=== PATIENT | female | born 1995 | race Caucasian/White ===

== ENCOUNTER 2019-03-31 14:45 | Emergency (ER) | payer SELFPAY ==
[2019-03-31 15:47] LABS: Absolute Lymphocytes (CBC) 0.9 K/uL (0.7-4.9); Absolute Monocytes 0.6 K/uL (0.1-1.3); Basophils % 0.2 % (0-1.3); Eosinophils % 0.9 % (0-4.4); Hematocrit 38.4 % (36.0-45.0); MPV 9.3 fL (7.6-11.3); Monocytes % 4.9 % (3.3-12.3); RBC Red Blood Cell Count 4.33 M/uL (3.86-4.86)
[2019-03-31] MEDS ORDERED: NA CHLORIDE 0.9% 1,000 ML ONE (15:58)
[2019-03-31 16:02] LABS: BUN Blood Urea Nitrogen 8 mg/dL (7-18); Bicarbonate 23 mmol/L (21-32); Glucose Level 83 mg/dL (74-106); Potassium 3.7 mmol/L (3.5-5.1); Sodium Level 138 mmol/L (136-145)
--- NOTE | 2019-03-31 17:23 | RAD REPORT ---
EXAM DESCRIPTION: US - Matter Elizabethal Tm 1 - 03/31/2019 5:17 pm CLINICAL HISTORY: ABD PAIN Early . COMPARISON: OBSTETRICAL COMPLETE dated 10/05/2012 FINDINGS: A single gestational sac is seen within the uterus. The shape of the sac is within normal limits for gestational age. Within the sac is a single pole with crown-rump length of 2.7 cm, c orrelating to estimated gestational age of 9 weeks 3 days. Estimated date of delivery is 10/31/2019. Heart rate is 172 BPM.. The placenta is not yet developed / visualized due to early gestational age. The maternal adnexa and ovaries are within normal limits. Normal Doppler blood flow was demonstrated to both ovaries. IMPRESSION: Single live early intrauterine gestation with estimated gestational age of 9 weeks 3 day s, ALEX 10/31/2019. No unusual or unexpected finding.
[2019-03-31 17:58] LABS: Blood Morphology Comment NOT SEEN (NOT SEEN); Platelet Estimate ADEQ; Urine White Blood Cell Casts OK
--- NOTE | 2019-03-31 18:16 | EDPHYS ---
Physician Documentation [facility] Name: Jahaira Martines Age: 23 yrs Sex: Female : 1995 Arrival Date: 03/31/2019 Time: 14:49 Bed 8 Private MD: ED Physician Laith Mars HPI: 03/31 18:44 This 23 yrs old Female presents to ER via Ambulatory with complaints of kdr Dizziness, Abdominal Pain - 8 wks preg. 18:44 The patient has had intermittent dizziness and right arm numbness for a month or more. kdr She had a syncopal episode earlier today but then went to work. After going to work, she began to have low abdominal pain. She then sought treatment here. She has had no care to date. She is currently not in acute distress and does not appear ill or debilitated in any way. Onset: The symptoms/episode began/occurred today. Severity of symptoms: At their worst the symptoms were moderate in the emergency department the symptoms have resolved. The patient has experienced similar episodes in the past, multiple times. The patient has not recently seen a physician. Historical: - Allergies: 15:12 No Known Drug Allergies; sv - PMHx: 15:12 Migraines; sv - PSHx: 15:12 ; sv - Immunization history:: Adult Immunizations up to date. - Social history:: Smoking status: Patient/guardian denies using tobacco. - Ebola Screening: : No symptoms or risks identified at this time. Vital Signs: 15:12 BP 147 / 85; Pulse 93; Resp 16; Temp 98; Pulse Ox 99% ; Weight 104.33 kg; Height 5 ft. sv 3 in. (160.02 cm); Pain 4/10; 17:55 BP 121 / 70; Pulse 72; Resp 16; Pulse Ox 98% on R/A; la1 15:12 Body Mass Index 40.74 (104.33 kg, 160.02 cm) sv MDM: 18:15 Patient medically screened. kdr 03/31 15:20 Order name: Abo/rh Typing; Complete Time: 17:10 kdr 03/31 15:20 Order name: Basic Metabolic Panel; Complete Time: 17:10 kdr 03/31 15:20 Order name: CBC with Diff kdr 03/31 16:41 Order name: Urine Dipstick--Ancillary (enter results) 1 03/31 16:41 Order name: Urine --Ancillary (enter results) em1 03/31 15:20 Order name: IV Saline Lock; Complete Time: 15:39 kdr 03/31 15:20 Order name: Labs collected and sent; Complete Time: 15:39 kdr 03/31 15:20 Order name: NPO; Complete Time: 15:39 kdr 03/31 15:20 Order name: EKG; Complete Time: 15:22 sv 03/31 17:18 Order name: Matter Eval Tm 1; Complete Time: 17:32 EDSC 03/31 17:59 Order name: CBC Smear Scan EDSC 03/31 15:20 Order name: Urine Dipstick-Ancillary (obtain specimen); Complete Time: 16:41 kdr 03/31 15:20 Order name: EKG - Nurse/Tech; Complete Time: 15:39 sv Administered Medications: 15:44 Drug: NS 0.9% 1000 ml Route: IV; Rate: 1 bolus; Site: right antecubital; la1 18:51 Follow up: IV Status: Completed infusion la1 Disposition: 03/31/19 18:15 Discharged to Home. Impression: Abdominal and pelvic pain, Abdominal Pain in . - Condition is Stable. - Discharge Instructions: Abdominal Pain, Adult, Kjie-ga-[id number], Abdominal Pain During , [id number]-[id number]. - Prescriptions for promethazine 25 mg Oral Tablet - take 1 tablet by ORAL route every 6 hours As needed; 20 tablet. - Medication Reconciliation Form, Thank You Letter, Work release form form. - Follow up: Private Physician; When: 2 - 3 days; Reason: If symptoms return, Further diagnostic work-up, Recheck today's complaints, Continuance of care, Re-evaluation by your physician. - Problem is new. - Symptoms have improved. Signatures: Dispatcher [employer] [facility] Rosie Chavis RN HORACIO Laith Mars MD MD kdr Attema, Lee, RN RN la1 Corrections: (The following items were deleted from the chart) 17:18 15:44 OB Complete+US.RAD.BRZ ordered. [facility] 18:52 18:15 03/31/2019 18:15 Discharged to Home. Impression: Abdominal and pelvic pain; la1 Abdominal Pain in . Condition is Stable. Forms are Medication Reconciliation Form, Thank You Letter, Antibiotic Education, Prescription Opioid Use. Follow up: Private Physician; When: 2 - 3 days; Reason: If symptoms return, Further diagnostic work-up, Recheck today's complaints, Continuance of care, Re-evaluation by your physician. Problem is new. Symptoms have improved. kdr
--- NOTE | 2019-03-31 18:16 | ER ---
Nurse's Notes [facility] Name: Jahaira Martines Age: 23 yrs Sex: Female : 1995 Arrival Date: 03/31/2019 Time: 14:49 Bed 8 Private MD: Diagnosis: Abdominal and pelvic pain;Abdominal Pain in Presentation: 03/31 15:09 Presenting complaint: Patient states: dizziness since this morning and passed out sv around 0900, went to work and had a banana today d/t nausea. lower abd pain since 1300 today. Pt also reports for about the past month has had dizzy spells and intermittently she will have her right arm go numb. Reports being about 8 weeks . Transition of care: patient was not received from another setting of care. Onset of symptoms was March 31, 2019. Care prior to arrival: None. 15:09 Method Of Arrival: Ambulatory sv 15:09 Acuity: BORA 2 sv 15:19 Initial Sepsis Screen: Does the patient meet any 2 criteria? No. Patient's initial sv sepsis screen is negative. Does the patient have a suspected source of infection? No. Patient's initial sepsis screen is negative. Triage Assessment: 15:09 General: Appears uncomfortable, Behavior is calm, cooperative, appropriate for age. sv Pain: Complains of pain in right lower quadrant and left lower quadrant Pain currently is 4 out of 10 on a pain scale. Neuro: Level of Consciousness is awake, alert, obeys commands, Oriented to person, place, time, situation, Moves all extremities. Full function Gait is steady, Speech is normal, Reports dizziness, a syncopal episode. Respiratory: Respiratory effort is even, unlabored, Respiratory pattern is regular, symmetrical. GI: Reports lower abdominal pain, nausea. Historical: - Allergies: 15:12 No Known Drug Allergies; sv - PMHx: 15:12 Migraines; sv - PSHx: 15:12 ; sv - Immunization history:: Adult Immunizations up to date. - Social history:: Smoking status: Patient/guardian denies using tobacco. - Ebola Screening: : No symptoms or risks identified at this time. Screenin:40 Abuse screen: Denies threats or abuse. Nutritional screening: No deficits noted. la1 Tuberculosis screening: No symptoms or risk factors identified. Fall Risk None identified. Assessment: 15:39 General: Appears in no apparent distress. Behavior is calm, cooperative. Pain: la1 Complains of pain in abdomen and left lower quadrant and right lower quadrant. Neuro: Level of Consciousness is awake, alert, obeys commands, Oriented to person, place, time, situation. Cardiovascular: Capillary refill < 3 seconds Patient's skin is warm and dry. Respiratory: Airway is patent Respiratory effort is even, unlabored, Respiratory pattern is regular, symmetrical, Breath sounds are clear bilaterally. GI: Bowel sounds present X 4 quads. Abd is soft and non tender X 4 quads. Reports nausea, vomiting. : No signs and/or symptoms were reported regarding the genitourinary system. 16:37 Reassessment: Patient appears in no apparent distress at this time. No changes from la1 previously documented assessment. Patient and/or family updated on plan of care and expected duration. Pain level reassessed. Patient is alert, oriented x 3, equal unlabored respirations, skin warm/dry/pink. 17:55 Reassessment: Patient appears in no apparent distress at this time. No changes from la1 previously documented assessment. Patient and/or family updated on plan of care and expected duration. Pain level reassessed. Patient is alert, oriented x 3, equal unlabored respirations, skin warm/dry/pink. 18:51 Neuro: No deficits noted. Level of Consciousness is awake, alert, obeys commands, la1 Oriented to person, place, time, situation, Banquet Captain are equal bilaterally Speech is normal, Pupils are PERRLA. Vital Signs: 15:12 BP 147 / 85; Pulse 93; Resp 16; Temp 98; Pulse Ox 99% ; Weight 104.33 kg; Height 5 ft. sv 3 in. (160.02 cm); Pain 4/10; 17:55 BP 121 / 70; Pulse 72; Resp 16; Pulse Ox 98% on R/A; la1 15:12 Body Mass Index 40.74 (104.33 kg, 160.02 cm) sv ED Course: 14:49 Patient arrived in ED. as 15:11 Triage completed. sv 15:12 Arm band placed on. sv 15:19 Laith Mars MD is Attending Physician. kdr 15:39 Asa Wraren RN is Primary Nurse. la1 15:40 Placed in gown. Bed in low position. Call light in reach. la1 15:40 No provider procedures requiring assistance completed. Inserted saline lock: 20 gauge la1 in right antecubital area, using aseptic technique. Blood collected. 16:08 Radiology exam delayed due to test not completed at this time. sg3 16:25 Lab(s) recollected, by me, sent to lab. Second set of blood cultures drawn. Inserted em1 saline lock: 22 gauge in right hand, using aseptic technique. Blood collected. 17:18 Matter Eval Tm 1 In Process Unspecified. EDMS 18:51 IV discontinued, intact, bleeding controlled, No redness/swelling at site. Pressure la1 dressing applied. Administered Medications: 15:44 Drug: NS 0.9% 1000 ml Route: IV; Rate: 1 bolus; Site: right antecubital; la1 18:51 Follow up: IV Status: Completed infusion la1 Outcome: 18:15 Discharge ordered by . kdr 18:51 Discharged to home ambulatory. la1 18:51 Condition: stable 18:51 Discharge instructions given to patient, Instructed on discharge instructions, follow up and referral plans. medication usage, Demonstrated understanding of instructions, follow-up care, medications, Prescriptions given X 1. 18:52 Patient left the ED. la1 Signatures: Dispatcher [employer] EDMS Rosie Chavis RN RN Laith Lou MD MD kdr Martinez, Kelsey Godwin, John em1 Asa Warren RN RN la1 Darleen Hammer sg3 Corrections: (The following items were deleted from the chart) 15:20 15:09 Presenting complaint: Patient states: dizziness since this morning and passed out sv around 0900, lower abd pain since 1300 today. Pt also reports for about the past month has had dizzy spells and intermittently she will have her right arm go numb. sv
[2019-03-31 19:34] VITALS: TEMP 98
[2019-03-31 19:35] VITALS: BP 121/70; O2SAT 98
[2019-03-31 20:10] LABS: Urine Blood NEGATIVE (NEG); Urine Glucose NEGATIVE (NEG); Urine Protein NEGATIVE (NEG); Urine pH 6.5 (5.0-7.0)
--- NOTE | 2019-04-01 09:48 | EKG ---
Test Date: 2019-03-31 Test Time: 15:28:52 Flat Screen Worker: VIBHA MEASUREMENT RESULTS: Intervals: Rate: 87 MA: 178 QRSD: 84 QT: 358 QTc: 430 [place]: P: 55 MA: 178 QRS: 54 T: 29 INTERPRETIVE STATEMENTS: Normal sinus rhythm Normal ECG Compared to ECG 07/20/2014 21:34:35 Sinus tachycardia no longer present T-wave abnormality no longer present Electronically Signed On 04-01-19 09:47:06 CDT by Epi Lerma
== END 2019-03-31 18:52 | disposition home or self-care (01) ==
LOC: ER 14:45
DX: O26.891 Other specified pregnancy related conditions, first trimester (principal); R10.9 Unspecified abdominal pain; R42 Dizziness and giddiness; Z3A.09 9 weeks gestation of pregnancy
CPT/HCPCS: 36415; 76801; 80048; 81003; 81025; 85025; 86900; 86901; 93005; 96360; 96361; 99284; J7030

== ENCOUNTER 2019-08-13 15:42 | Emergency (ER) | payer OTHER, SELFPAY ==
[2019-08-13 16:13] LABS: Absolute Lymphocytes (CBC) 1.1 K/uL (0.7-4.9); Basophils % 0.1 % (0-1.3); Hematocrit 31.5 % (36.0-45.0); Lymphocytes % 8.8 % (15.3-44.8); MPV 9.2 fL (7.6-11.3); RBC Red Blood Cell Count 3.53 M/uL (3.86-4.86)
[2019-08-13] MEDS ORDERED: NA CHLORIDE 0.9% 1,000 ML ONE (16:31)
[2019-08-13] MEDS ORDERED: CEFTRIAXONE/SWI 1gm 1 GM/10 ML SYR ONE (16:31)
[2019-08-13 16:33] LABS: ALT/SGPT 15 U/L (12-78); AST/SGOT 12 U/L (15-37); Albumin 2.5 g/dL (3.4-5.0); Alkaline Phosphatase 91 U/L (45-117); BUN Blood Urea Nitrogen 9 mg/dL (7-18); Bicarbonate 24 mmol/L (21-32); Bilirubin Total 0.2 mg/dL (0.2-1.0); Glucose Level 97 mg/dL (74-106); Potassium 3.5 mmol/L (3.5-5.1); Protein, Total 6.7 g/dL (6.4-8.2); Sodium Level 139 mmol/L (136-145)
--- NOTE | 2019-08-13 16:36 | EKG ---
Test Date: 2019-08-13 Test Time: 15:51:58 Paper Conservator: MANDY MEASUREMENT RESULTS: Intervals: Rate: 116 MI: 154 QRSD: 82 QT: 330 QTc: 458 [place]: P: 60 MI: 154 QRS: 67 T: 27 INTERPRETIVE STATEMENTS: Sinus tachycardia Otherwise normal ECG Compared to ECG 03/31/2019 15:28:52 Sinus rhythm no longer present Electronically Signed On 08-13-19 16:35:27 CDT by Epi Lerma
[2019-08-13 16:43] LABS: Urine Blood NEGATIVE (NEG); Urine Glucose NEGATIVE (NEG); Urine Protein 1+ (NEG); Urine Specific Gravity >1.030 (1.005-1.030)
[2019-08-13] MEDS ORDERED: ONDANSETRON 4 MG/2 ML VIAL ONE (16:56)
--- NOTE | 2019-08-13 17:34 | EDPHYS ---
Physician Documentation [facility] Name: Jahaira Martines Age: 24 yrs Sex: Female : 1995 Arrival Date: 08/13/2019 Time: 15:49 Bed 24 Private MD: ED Physician Santino Dutta HPI: 08/13 16:24 This 24 yrs old Female presents to ER via EMS with complaints of Dizziness, jr8 Back Pain - 29 weeks . 16:24 The patient presents with dizziness. Onset: The symptoms/episode began/occurred jr8 acutely, today. Context: occurred at work. Modifying factors: The symptoms are alleviated by nothing, the symptoms are aggravated by nothing. Associated signs and symptoms: Pertinent positives: chest pain, shortness of breath, back pain. Severity of symptoms: At their worst the symptoms were moderate in the emergency department the symptoms are unchanged. The patient has experienced a previous episode. The patient has not recently seen a physician. Patient 29 weeks . G5, P2, A2, L2. History of preeclampsia. Stated that this thus far has been going well. Had been recently diagnosed and put on Macrobid for UTI. Was checked for preeclampsia a couple of weeks ago for elevated BP but was ok at that time. Has had some continued low back pain that started about 2 months ago and was put on muscle relaxant by OB. Started to feel dizzy today and noted that while at work her BP was elevated. 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 - Social history:: Smoking status: Patient/guardian denies using tobacco. - Ebola Screening: : Patient denies travel to an Ebola-affected area in the 21 days before illness onset. ROS: 17:28 Eyes: Negative for injury, pain, redness, and discharge, ENT: Negative for injury, jr8 pain, and discharge, Neck: Negative for injury, pain, and swelling, Abdomen/GI: Negative for abdominal pain, nausea, vomiting, diarrhea, and constipation, Back: Negative for injury and pain, MS/Extremity: Negative for injury and deformity, Skin: Negative for injury, rash, and discoloration. 17:28 Cardiovascular: Positive for chest pain, Negative for edema, orthopnea, palpitations, paroxysmal nocturnal dyspnea. 17:28 Respiratory: Positive for shortness of breath. 17:28 Neuro: Positive for dizziness. Exam: 17:28 Eyes: Pupils equal round and reactive to light, extra-ocular motions intact. Lids and jr8 lashes normal. Conjunctiva and sclera are non-icteric and not injected. Cornea within normal limits. Periorbital areas with no swelling, redness, or edema. ENT: Nares patent. No nasal discharge, no septal abnormalities noted. Tympanic membranes are normal and external auditory canals are clear. Oropharynx with no redness, swelling, or masses, exudates, or evidence of obstruction, uvula midline. Mucous membranes moist. Neck: Trachea midline, no thyromegaly or masses palpated, and no cervical lymphadenopathy. Supple, full range of motion without nuchal rigidity, or vertebral point tenderness. No Meningismus. Cardiovascular: Regular rate and rhythm with a normal S1 and S2. No gallops, murmurs, or rubs. Normal PMI, no JVD. No pulse deficits. Respiratory: Lungs have equal breath sounds bilaterally, clear to auscultation and percussion. No rales, rhonchi or wheezes noted. No increased work of breathing, no retractions or nasal flaring. Abdomen/GI: Soft, non-tender, with normal bowel sounds. No distension or tympany. No guarding or rebound. No evidence of tenderness throughout. Gravid in appearance Back: No spinal tenderness. No costovertebral tenderness. Full range of motion. Skin: Warm, dry with normal turgor. Normal color with no rashes, no lesions, and no evidence of cellulitis. MS/ Extremity: Pulses equal, no cyanosis. Neurovascular intact. Full, normal range of motion. Neuro: Awake and alert, GCS 15, oriented to person, place, time, and situation. Cranial nerves II-XII grossly intact. Motor strength 5/5 in all extremities. Sensory grossly intact. Cerebellar exam normal. Normal gait. Vital Signs: 15:54 BP 159 / 97; Pulse 118; Resp 20; Pulse Ox 98% on R/A; Weight 117.93 kg (R); Height 5 aj1 ft. 3 in. (160.02 cm) (R); 16:58 BP 137 / 88; Pulse 108; Resp 20; Pulse Ox 96% on R/A; aj1 15:54 Body Mass Index 46.06 (117.93 kg, 160.02 cm) aj1 MDM: 15:50 Patient medically screened. 17:28 Data reviewed: vital signs, nurses notes, lab test result(s), EKG. Data interpreted: jr8 Pulse oximetry: on room air is 96 %. Interpretation: normal. Counseling: I had a detailed discussion with the patient and/or guardian regarding: the historical points, exam findings, and any diagnostic results supporting the discharge/admit diagnosis, lab results, the need for outpatient follow up, an OB/Gyne specialist, to return to the emergency department if symptoms worsen or persist or if there are any questions or concerns that arise at home. Response to treatment: the patient's symptoms have markedly improved after treatment, patient is well hydrated. ED course: Patient feeling much better. Discussed with her that there is great concern that she is preeclamptic again. Although BP is good recommend f/u with OB tomorrow to be reevaluated and put on medicine if needed. Patient understood and would f/u with OB in the morning. 08/13 15:51 Order name: CBC with Diff; Complete Time: 16:23 08/13 15:51 Order name: CMP; Complete Time: 16:47 08/13 15:51 Order name: DD; Complete Time: 16:47 08/13 16:29 Order name: Urine Dipstick--Ancillary (enter results); Complete Time: 16:47 bd 08/13 15:51 Order name: Urine Dipstick-Ancillary (obtain specimen); Complete Time: 16:30 08/13 15:51 Order name: EKG; Complete Time: 15:52 08/13 15:51 Order name: EKG - Nurse/Tech; Complete Time: 16:09 08/13 17:39 Order name: FHT's; Complete Time: 18:10 Administered Medications: 16:36 Drug: NS 0.9% 1000 ml Route: IV; Rate: 1000 ml; Site: right wrist; aj1 18:31 Follow up: IV Status: Completed infusion; IV Intake: 1000ml aj 16:36 Drug: Rocephin 1 grams Route: IV; Rate: calculated rate; Site: right wrist; [facility] 18:32 Follow up: IV Status: Completed infusion; IV Intake: 10ml [facility] 16:58 Drug: Zofran 4 mg Route: IVP; Site: right wrist; [facility] 18:32 Follow up: Response: No adverse reaction aj Disposition: 08/14 06:22 Co-signature as Attending Physician, Santino Dutta MD I agree with the assessment and jorge a plan of care. Disposition: 08/13/19 17:33 Discharged to Home. Impression: Pre-eclampsia. - Condition is Stable. - Discharge Instructions: Preeclampsia and Eclampsia. - Medication Reconciliation Form, Thank You Letter, Antibiotic Education, Prescription Opioid Use form. - Follow up: Private Physician; When: Tomorrow; Reason: Recheck today's complaints, Continuance of care, Re-evaluation by your physician. - Problem is new. - Symptoms have improved. Signatures: Dispatcher [employer] EDMindi Kimble RN RN aj Santino Dutta MD MD cha Roszak, Josh, PA PA jr8 Corrections: (The following items were deleted from the chart) 08/13 17:29 16:24 Patient 29 weeks . G5, P2, A2, L2. History of preeclampsia. Stated that 8 this thus far has been going well. Had been recently diagnosed and put on Macrobid for UTI. Was checked for preeclampsia a couple of weeks ago for elevated BP but was ok at that time. Has had some continued low back pain that started about 2 months ago and was put on muscle relaxant by OB. . 8 17:38 17:28 ED course: Patient feeling much better. Discussed with her that there is great [facility] concern that she is preeclamptic again. Although BP is good recommend f/u with OB tomorrow to be reevaluated and put on medicine if needed. Patient understood and would f/u with OB . jr8 18:32 17:33 08/13/2019 17:33 Discharged to Home. Impression: Pre-eclampsia. Condition is aj1 Stable. Forms are Medication Reconciliation Form, Thank You Letter, Antibiotic Education, Prescription Opioid Use. Follow up: Private Physician; When: Tomorrow; Reason: Recheck today's complaints, Continuance of care, Re-evaluation by your physician. Problem is new. Symptoms have improved. jr8
--- NOTE | 2019-08-13 17:34 | ER ---
Nurse's Notes [facility] Name: Jahaira Martines Age: 24 yrs Sex: Female : 1995 Arrival Date: 08/13/2019 Time: 15:49 Bed 24 Private MD: Diagnosis: Pre-eclampsia Presentation: 08/13 15:50 Presenting complaint: EMS states: Patient reported dizziness, chest pain and nausea, aj1 she is currently 29 weeks , taking abx for UTI and muscle relaxers for back pain, states that she was recently admitted for observation at [facility] for high blood pressure, but was able to be discharged home. Reports a history or pre-eclampsia in a previous . Transition of care: patient was not received from another setting of care. Onset of symptoms was August 13, 2019. Risk Assessment: Do you want to hurt yourself or someone else? Patient reports no desire to harm self or others. Initial Sepsis Screen: Does the patient meet any 2 criteria? No. Patient's initial sepsis screen is negative. Does the patient have a suspected source of infection? No. Patient's initial sepsis screen is negative. Care prior to arrival: None. 15:50 Method Of Arrival: EMS aj1 15:50 Acuity: BORA 3 aj1 Triage Assessment: 15:54 General: Appears in no apparent distress. comfortable, Behavior is calm, cooperative, aj1 appropriate for age. Pain: Complains of pain in low back area, right lower quadrant and left lower quadrant. Musculoskeletal: Range of motion: intact in all extremities. MEDICAL RECORD CODER: 15:54 LMP 12/2018 aj1 Historical: - Allergies: 15:54 No Known Allergies; aj1 - Home Meds: 15:54 Macrobid Oral [Active]; unknown muscle relaxer [Active]; aj1 - PMHx: 15:54 Migraines; pre-eclampsia; aj1 - Immunization history:: Flu vaccine is up to date. - Social history:: Smoking status: Patient/guardian denies using tobacco. - Ebola Screening: : Patient denies travel to an Ebola-affected area in the 21 days before illness onset. Screenin:00 Abuse screen: Denies threats or abuse. Denies injuries from another. Nutritional aj1 screening: No deficits noted. Tuberculosis screening: No symptoms or risk factors identified. 18:31 Fall Risk None identified. aj1 Assessment: 16:00 General: Appears in no apparent distress. uncomfortable, Behavior is calm, cooperative, aj1 appropriate for age. Pain: Complains of pain in left lower quadrant and right lower quadrant and low back area Pain does not radiate. Neuro: Level of Consciousness is awake, alert, obeys commands, Oriented to person, place, time, situation, Senior Consultant are equal bilaterally Moves all extremities. Full function Gait is steady, Speech is normal, Facial symmetry appears normal, Reports dizziness. Cardiovascular: Patient's skin is warm and dry. Respiratory: Airway is patent Respiratory effort is even, unlabored, Respiratory pattern is regular, symmetrical. GI: No signs and/or symptoms were reported involving the gastrointestinal system. Reports nausea. : Denies discharge, vaginal bleeding. EENT: No signs and/or symptoms were reported regarding the EENT system. Derm: No signs and/or symptoms reported regarding the dermatologic system. Skin is pink, warm \T\ dry. normal. Musculoskeletal: No signs and/or symptoms reported regarding the musculoskeletal system. Circulation, motion, and sensation intact. 17:00 Reassessment: Patient appears in no apparent distress at this time. No changes from aj1 previously documented assessment. Patient and/or family updated on plan of care and expected duration. Pain level reassessed. Patient is alert, oriented x 3, equal unlabored respirations, skin warm/dry/pink. 18:00 Reassessment: Patient appears in no apparent distress at this time. No changes from aj1 previously documented assessment. Patient and/or family updated on plan of care and expected duration. Pain level reassessed. Patient is alert, oriented x 3, equal unlabored respirations, skin warm/dry/pink. Vital Signs: 15:54 BP 159 / 97; Pulse 118; Resp 20; Pulse Ox 98% on R/A; Weight 117.93 kg (R); Height 5 aj1 ft. 3 in. (160.02 cm) (R); 16:58 BP 137 / 88; Pulse 108; Resp 20; Pulse Ox 96% on R/A; aj1 15:54 Body Mass Index 46.06 (117.93 kg, 160.02 cm) aj1 Vitals: 18:30 Heart Tones 158. aj1 ED Course: 15:49 Patient arrived in ED. aj1 15:50 Samy Kramer PA is PHCP. jr8 15:50 Santino Dutta MD is Attending Physician. jr8 15:52 Triage completed. aj1 15:54 Arm band placed on. aj1 16:00 Patient has correct armband on for positive identification. Bed in low position. Call aj1 light in reach. Side rails up X 1. heel compressor on. Pulse ox on. NIBP on. 16:00 No provider procedures requiring assistance completed. aj1 16:07 EKG done, by vocational technical education teacher. reviewed by Samy FIGUEROA. 3 16:09 Mindi Perry, RN is Primary Nurse. aj1 16:15 Inserted saline lock: 20 gauge in right wrist, using aseptic technique. aj1 18:30 IV discontinued, intact, bleeding controlled, No redness/swelling at site. Pressure aj1 dressing applied. Administered Medications: 16:36 Drug: NS 0.9% 1000 ml Route: IV; Rate: 1000 ml; Site: right wrist; aj1 18:31 Follow up: IV Status: Completed infusion; IV Intake: 1000ml aj1 16:36 Drug: Rocephin 1 grams Route: IV; Rate: calculated rate; Site: right wrist; aj1 18:32 Follow up: IV Status: Completed infusion; IV Intake: 10ml aj1 16:58 Drug: Zofran 4 mg Route: IVP; Site: right wrist; aj1 18:32 Follow up: Response: No adverse reaction aj1 Intake: 18:31 IV: 1000ml; Total: 1000ml. aj1 18:32 IV: 10ml; Total: 1010ml. aj1 Outcome: 17:33 Discharge ordered by . 8 18:31 Discharged to home ambulatory, with family. aj1 18:31 Condition: good 18:31 Discharge instructions given to patient, family, Instructed on discharge instructions, follow up and referral plans. Demonstrated understanding of instructions, follow-up care. 18:32 Patient left the ED. aj1 Signatures: Mindi Perry RN RN aj1 Samy Kramer PA PA 8 Lisa Sharpe 3
[2019-08-13 18:46] VITALS: BP 137/88; O2SAT 96
== END 2019-08-13 18:32 | disposition home or self-care (01) ==
LOC: ER 15:42
DX: O14.93 Unspecified pre-eclampsia, third trimester (principal); Z3A.29 29 weeks gestation of pregnancy
CPT/HCPCS: 96365; 93005; 85025; 36415; 85379; 81003; 80053; 96375; 99284; 96366; J0696; J7030; J2405